=== PATIENT | female | born 1970 | race Caucasian/White ===

== ENCOUNTER 2023-02-21 12:27 | Outpatient (AMB) | payer SELFPAY ==
--- NOTE | 2023-02-21 13:27 | MHC.OFFWIV ---
Intake Vital Signs 02/21/23 13:38 Height 5 ft 2 in Weight 150 lb BMI 27.4 BP 120/70 Blood Pressure Location Rt brachial Position Sitting Pulse 86 Pulse Source Pulse Oximeter Temp 97.6 F Temp Source Temporal Artery Scan Pulse Oximetry (%) 98 Oxygen Delivery Method Room Air Intake Visit Reasons: EST/cough/congestion/[phone] Intake Note: Pt is here c/o chest congestion, cough and severe diarrhea. Patient Tobacco Use Status: Never used Tobacco Allergies Sulfa (Sulfonamide Antibiotics) Adverse Reaction (Intermediate, Verified 02/21/23 14:15) Hives Medication List - Last Reconciled 02/21/23 by Manuelito Jeff MD pravastatin 10 mg PO DAILY Do you need a note to return to daycare/school/sports/work: No HPI EST/cough/congestion/[phone] HPI Details Patient presents for a sick visit. Reporting symptoms of sinus congestion, sore throat and difficulty swallowing. Low-grade fever. No family member is sick. No recent travel. Patient reports symptoms of malaise and fatigue. [facility] Social History Patient Tobacco Use Status: Never used Tobacco Physical Exam Vital Signs: Last Vital Signs Temp 97.6 F 02/21/23 13:38 Pulse 86 02/21/23 13:38 BP 120/70 02/21/23 13:38 Pulse Ox 98 02/21/23 13:38 Oxygen Delivery Method Room Air 02/21/23 13:38 BMI result Body Mass Index 27.4 Const General: cooperative and healthy appearing Nutritional Appearance: well nourished Orientation/consciousness: patient oriented x3 Limitations: no limitations HEENT Head: Yes normal to inspection Eyes General: appearance normal, both eyes and all related structures Neck Neck: Yes normal visual inspection Chest Chest palpation & inspection: normal palpation of entire chest wall Resp Effort & Inspection: normal respiratory effort Neuro General: patient oriented x3 Assessment & Plan Assessment & Plan (1) Upper respiratory tract infection: Code(s): J06.9 - Acute upper respiratory infection, unspecified Plan: Antibiotics ordered. Increase fluid intake. Tylenol for aches and pains. If symptoms worsen, follow-up here for a recheck. Coding Level of Care Code Est Pt Level 3 (06675) Diagnoses Upper respiratory tract infection J06.9
[2023-02-21 13:38] VITALS: BP 120/70; PULSE 86; TEMP 36.4; O2SAT 98; BMI 27.4
== END 2023-02-21 14:57 | disposition home or self-care (01) ==
PROVIDERS: PCP Internal Medicine; Visit Provider Internal Medicine
DX: J06.9 Acute upper respiratory infection, unspecified (principal)
CPT/HCPCS: 99213

== ENCOUNTER 2023-03-27 10:08 | Outpatient (AMB) | payer OTHER, SELFPAY ==
[2023-03-27 10:59] VITALS: BP 132/88; PULSE 87; O2SAT 98; BMI 29.3
--- NOTE | 2023-03-27 10:59 | A.OFFPC_ITS ---
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: Not Required per policy Accompanied by: Self / Same As Patient Allergies atorvastatin Adverse Reaction (Intermediate, Unverified 03/27/23 11:20) hives Sulfa (Sulfonamide Antibiotics) Adverse Reaction (Intermediate, Verified 03/27/23 10:59) Hives Medication List - Last Reconciled 03/27/23 by Vanessa Dominguez MD albuterol sulfate 90 mcg/actuation (Ventolin HFA) 1 inh inhalation QID PRN hydroxyzine HCl 10 mg PO BEDTIME PRN pravastatin 10 mg PO DAILY Tobacco use date assessed: 03/27/23 Dental Screening Dental Screen Date: 03/27/23 Did you have a dental visit in the last 12 months?: Yes Did you have a dental problem in the last 6 months where you did not have access to dental care?: No Was dental information given to patient?: Patient has dentist 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 Patient was recently in the hospital diagnosed with upper respiratory tract infection treated with Zithromax and prednisone. [facility] Surgical History (Updated 03/27/23 @ 11:27 by Vanessa Dominguez MD) History of appendectomy H/O knee surgery Hx of tubal ligation History of tonsillectomy and adenoidectomy Family History (Updated 03/27/23 @ 11:29 by Vanessa Dominguez MD) Father Heart attack History of stroke Mother Alzheimer's disease Paternal Grandmother Heart attack History of stroke Paternal Uncle History of stroke Paternal Aunt History of stroke Maternal Aunt Breast cancer Lung cancer Maternal Grandmother Lung cancer Maternal Grandfather Lung cancer Maternal Uncle Lung cancer Eye cancer Parkinson disease Social History (Updated 03/27/23 @ 11:31 by Vanessa Dominguez MD) Housing: House Alcohol intake: current Comment: holidays 2 drinks Patient Tobacco Use Status: Current everyday Tobacco user Cigarette Packs Per Day: 1 Years Smoked: 2017 started Current occupational status: student Cognitive needs: No Hearing needs: No Vision needs: No Questionnaire PHQ-9 Over the last 2 weeks, how often have you been bothered by any of the following problems? 1. Little interest or pleasure in doing things: not at all 2. Feeling down, depressed, or hopeless: not at all 3. Trouble falling or staying asleep, or sleeping too much: not at all 4. Feeling tired or having little energy: not at all 5. Poor appetite or overeating: not at all 6. Feeling bad about yourself - or that you are a failure or have let yourself or your family down: not at all 7. Trouble concentrating on things, such as reading the newspaper or watching television: not at all 8. Moving or speaking so slowly that other people could have noticed. Or the opposite - being so fidgety or restless that you have been moving around a lot more than usual: not at all 9. Thoughts that you would be better off or of hurting yourself in some way: not at all Total score: 0 Source: Developed by Drs. Kenneth Asher, Dottie Felton, Alvarez Trujillo and colleagues, with an educational henry from [employer]. Thrive Questionnaire Date Thrive assessed: 03/27/23 I am a: Patient What is your living situation today?: I have a steady place to live Within the past 12 months, did the food you bought not last and you didn't have the money to get more?: Never true Within the past 12 months, did you worry whether your food would run out before you got money to buy more?: Never true Do you have trouble paying for medicines?: No Do you have trouble getting transportation to medical appointments?: No Do you have trouble paying your heating and electricity bill?: No Do you have trouble taking care of your child, family member or friend?: No Do you have trouble with day-to-day activities such as bathing, preparing meals, shopping, managing finances, etc.?: No Are you currently unemployed and looking for a job?: No Are you interested in more education?: No Please select the resources that you would like help with: None AUDIT C Alcohol Use Questionnaire (AUDIT-C) 1. How often do you have a drink containing alcohol?: Never Total Score: 0 YULIANA-7 AMB Questionnaire YULIANA-7 Date YULIANA - 7 assessed: 03/27/23 Feeling nervous, anxious, or on edge: 0 = Not at all Not being able to stop or control worryin = Not at all Worrying too much about different things: 0 = Not at all Trouble relaxin = Not at all Being so restless that it is hard to sit still: 0 = Not at all Becoming easily annoyed or irritable: 0 = Not at all Feeling afraid as if something awful might happen: 0 = Not at all Total YULIANA-7 score (0-4 normal; 5-9 mild; 10-14 moderate; 15-21 severe): 0 Source: Developed by Drs. Kenneth Asher, Dottie Felton, Alvarez Trujillo and colleagues, with an educational henry from [employer]. Physical exam (Primary Care) Vital Signs: Last Vital Signs Pulse 87 03/27/23 10:59 BP 132/88 03/27/23 10:59 Pulse Ox 98 03/27/23 10:59 Oxygen Delivery Method Room Air 03/27/23 10:59 BMI result Body Mass Index 29.3 Tobacco/Smoking Status: Tobacco use Status Tobacco use date assessed 03/27/23 03/27/23 11:01 Patient Tobacco Use Status Current everyday Tobacco 03/27/23 11:31 PHQ-9: PHQ-9 Score PHQ-9: Total score 0 03/27/23 11:44 Thrive Assessment: Date of Thrive Assessment Date Thrive assessed 03/27/23 03/27/23 11:01 Const General: alert; No acute distress Eyes Conjunctivae: conjunctivae normal Resp Auscultation: clear to auscultation bilaterally Cardio Rate: regular rate Rhythm: regular rhythm GI Inspection: Yes normal to inspection Extrem General: Yes normal to inspection and No edema Office Procedures Flu Questionnaire Does the patient have a severe egg allergy?: No Does the patient have severe life threatening allergies?: No Does the patient have a fever or illness today?: No Has the patient ever had Guillain-Wellington Syndrome?: No Has the patient ever had any past reaction to a flu shot?: No Immunizations flu vacc [id number] 6mos up(PF) 60 mcg(15 mcgx4)/0.5 mL IM syringe Performing Provider: Vanessa Dominguez MD [facility] [place] [facility] Administered by: CHRIS Grubbs on 03/27/23 11:44 Dose Route Admin Location Dispensed Lot Number Expiration Date NDC Glove Machine Operator 0.5 mL IM Left Deltoid 0.5 mL [id number] 10/14/23 [id number] [employer] VIS Given Date VIS Provided VIS Publication Date 03/27/23 Single Vaccine 20 Eligibility Eligibility Date Funding Source Not [facility] Eligible 03/27/23 Private Assessment and Plan Assessment & Plan (1) Overweight (BMI 25.0-29.9): Code(s): E66.3 - Overweight Plan: Diet and exercise (2) Hypercholesterolemia: Code(s): E78.00 - Pure hypercholesterolemia, unspecified Plan: Avoid fried foods, chicken skin, eggs, butter margarine, pastries and meat. Be it pork or beef they have a lot of cholesterol LDL goal of less than 130 and triglyceride of less than 150 (3) Allergic rhinitis: Code(s): J30.9 - Allergic rhinitis, unspecified (4) Tobacco abuse: Code(s): Z72.0 - Tobacco use (5) Colon cancer screening: Code(s): Z12.11 - Encounter for screening for malignant neoplasm of colon (6) Breast cancer screening by mammogram: Code(s): Z12.31 - Encounter for screening mammogram for malignant neoplasm of breast Orders: Orders Thyroid Stimulating Hormone Today E78.00 - Pure hypercholesterolemia, unspecified MM tomosynthesis screening BI Today Z12.31 - Encounter for screening mammogram for malignant neoplasm of breast Influenza [id number] Immunization Today Z23 - Encounter for immunization PFT pulmonary function test Today Z72.0 - Tobacco use Complete Blood Count Auto Diff Today E78.00 - Pure hypercholesterolemia, unspecified Comprehensive Met. Panel Today E78.00 - Pure hypercholesterolemia, unspecified Free T4 (Free Thyroxine) Today E78.00 - Pure hypercholesterolemia, unspecified Lipid Panel Today E78.00 - Pure hypercholesterolemia, unspecified Vitamin B12 and Folate Today E78.00 - Pure hypercholesterolemia, unspecified Vitamin D 25-OH Total Today E78.00 - Pure hypercholesterolemia, unspecified Referrals Cologuard Test Z12.11 - Encounter for screening for malignant neoplasm of colon Thoracic Surgery Referral Z72.0 - Tobacco use Coding Level of Care Code New Pt Level 4 (77986) Diagnoses Overweight (BMI 25.0-29.9) E66.3 Hypercholesterolemia E78.00 Allergic rhinitis J30.9 Tobacco abuse Z72.0 Colon cancer screening Z12.11 Breast cancer screening by mammogram Z12.31
== END 2023-03-27 11:54 | disposition home or self-care (01) ==
PROVIDERS: PCP Internal Medicine; Visit Provider Internal Medicine
DX: E66.3 Overweight (principal); E78.00 Pure hypercholesterolemia, unspecified; J30.9 Allergic rhinitis, unspecified; Z72.0 Tobacco use; Z12.11 Encounter for screening for malignant neoplasm of colon; Z12.31 Encounter for screening mammogram for malignant neoplasm of breast; Z23 Encounter for immunization
CPT/HCPCS: 90471; 90686; 99204

== ENCOUNTER 2023-03-30 08:38 | Outpatient (REF) | payer OTHER, SELFPAY ==
--- NOTE | ~2023-03-30 | MM_ITS ---
EXAMINATION: MM SCREENING DIGITAL BREAST TOMOSYNTHESIS, BILATERAL CLINICAL INFORMATION: Screening. Asymptomatic. COMPARISON: Mammography: This study is compared with prior exams dating back to 2017. TECHNIQUE: Digital breast tomosynthesis is performed in both the craniocaudal and mediolateral oblique views along with computer-aided detection (CAD). Synthesized 2D images are generated from the tomosynthesis. FINDINGS: There are scattered areas of fibroglandular density (ACR BI-RADS breast composition Category b). In the superior aspect of the deep third of the right breast, there is an asymmetry for which additional mammographic and targeted sonographic imaging is advised. In the left breast, there are no significant masses, abnormal calcifications, or other abnormalities. MM/MM tomosynthesis screening BI IMPRESSION: Asymmetry of the right breast warrants additional mammographic and targeted sonographic evaluation. No mammographic signs of malignancy left breast. ASSESSMENT: BI-RADS BI-RADS 0 - Incomplete: Needs additional Imaging. RECOMMENDATION: 1. Additional views of the right breast. 2. Targeted ultrasound if warranted after review of the additional views. 3. Radiology department staff will contact the patient for additional imaging. Additional Imaging required This examination should not preclude the clinical evaluation of a suspicious palpable abnormality. This patient's information was entered into a reminder system with a target due date for their next mammogram.
== END 2023-03-30 08:39 | disposition home or self-care (01) ==
LOC: HO.MAMMO 08:38
PROVIDERS: PCP Internal Medicine; Visit Provider Internal Medicine
DX: Z12.31 Encounter for screening mammogram for malignant neoplasm of breast (principal)
CPT/HCPCS: 77063; 77067

== ENCOUNTER → 2023-03-30 08:45 | Outpatient (BNV) | payer OTHER, SELFPAY | PROVIDERS: PCP Internal Medicine; Visit Provider Radiology Diagnostic Radiology | DX: Z12.31 Encounter for screening mammogram for malignant neoplasm of breast (principal) | CPT/HCPCS: 77063; 77067 ==

== ENCOUNTER 2023-04-23 07:56 | Outpatient (REF) | payer OTHER, SELFPAY | END 2023-04-23 07:57 | disposition home or self-care (01) | LOC: HO.MAMMO 07:56 | PROVIDERS: PCP Internal Medicine; Visit Provider Internal Medicine | DX: N64.89 Other specified disorders of breast (principal) | CPT/HCPCS: 77061; 77065 ==

== ENCOUNTER → 2023-04-23 08:00 | Outpatient (BNV) | payer OTHER, SELFPAY | PROVIDERS: PCP Internal Medicine; Visit Provider Radiology Diagnostic Radiology | DX: R92.8 Other abnormal and inconclusive findings on diagnostic imaging of breast (principal) | CPT/HCPCS: 77061; 77065 ==

== ENCOUNTER 2024-03-01 11:31 | Outpatient (AMB) | payer OTHER, SELFPAY ==
--- NOTE | 2024-03-01 11:58 | AM.OFFWIN_ITS ---
Intake Vital Signs 03/01/24 11:59 Height 5 ft 2 in Weight 160 lb BMI 29.3 BP 130/80 Blood Pressure Location Lt brachial Position Sitting Pulse 92 Pulse Source Pulse Oximeter Temp 98.5 F Temp Source Oral Pulse Oximetry (%) 98 Intake Visit Reasons: EP cough Intake Note: pt is here for cough for a few days Patient Tobacco Use Status: Current everyday Tobacco user Allergies atorvastatin Adverse Reaction (Intermediate, Verified 03/01/24 12:00) hives Sulfa (Sulfonamide Antibiotics) Adverse Reaction (Intermediate, Verified 03/01/24 12:00) Hives Do you need a note to return to daycare/school/sports/work: No HPI HPI Comments History of Present Illness Details 53 y/o female patient who presents to [facility] walk in clinic with c/o cough for few days now. [facility] Surgical History (Updated 03/27/23 @ 11:27 by Vanessa Dominguez MD) History of appendectomy H/O knee surgery Hx of tubal ligation History of tonsillectomy and adenoidectomy Family History (Updated 03/27/23 @ 11:29 by Vanessa Dominguez MD) Father Heart attack History of stroke Mother Alzheimer's disease Paternal Grandmother Heart attack History of stroke Paternal Uncle History of stroke Paternal Aunt History of stroke Maternal Aunt Breast cancer Lung cancer Maternal Grandmother Lung cancer Maternal Grandfather Lung cancer Maternal Uncle Lung cancer Eye cancer Parkinson disease Social History (Updated 03/27/23 @ 11:31 by Vanessa Dominguez MD) Housing: House Alcohol intake: current Comment: holidays 2 drinks Patient Tobacco Use Status: Current everyday Tobacco user Cigarette Packs Per Day: 1 Years Smoked: 2017 started Current occupational status: student Cognitive needs: No Hearing needs: No Vision needs: No Review of Systems Const All systems reviewed & are unremarkable except as noted in HPI and below Physical Exam Vital Signs: Last Vital Signs Temp 98.5 F 03/01/24 11:59 Pulse 92 03/01/24 11:59 BP 130/80 03/01/24 11:59 Pulse Ox 98 03/01/24 11:59 BMI result Body Mass Index 29.3 Const General: cooperative and no acute distress Orientation/consciousness: patient oriented x3 HEENT Head: Yes normocephalic Ears: external ears normal and TM's normal bilaterally General nose exam: Normal external nose present Face and sinus: Yes sinuses nontender Mouth: moist mucous membranes Resp Effort & Inspection: normal respiratory effort, able to speak in complete sentences and Actively coughing Auscultation: no crackles, no rales, no rhonchi, wheezes inspiratory wheezes and diminished lung sounds bilateral in the lower lung [place] Cardio Heart sounds: S1 normal heart sound present and S2 normal heart sound present Neuro General: patient oriented x3 Assessment & Plan Assessment & Plan (1) Cough: Code(s): R05.9 - Cough, unspecified Qualifiers: Cough type: acute Qualified Code(s): R05.1 - Acute cough Plan: Ordered Chest Xray Ordered Abx Acetaminophen for pain relief Rest and hydrate well with warm fluids. Orders: Orders XR chest 2V Today R05.1 - Acute cough SARS-CoV2/FLU/RSV Today R09.89 - Other specified symptoms and signs involving the circulatory and respiratory systems Medications: New prednisone 50 mg PO DAILY 5 tabs 0RF R05.1 - Acute cough doxycycline hyclate 100 mg PO BID 20 caps 0RF 10 days R05.1 - Acute cough benzonatate 100 mg PO TID 90 caps 0RF R05.1 - Acute cough Coding Level of Care Code Est Pt Level 4 (81877) Diagnoses Acute cough R05.1 Cough type: acute Time Spent (min) 20
[2024-03-01 11:59] VITALS: BP 130/80; PULSE 92; TEMP 36.9; O2SAT 98; BMI 29.3
== END 2024-03-01 12:22 | disposition home or self-care (01) ==
PROVIDERS: PCP Internal Medicine; Visit Provider Nurse Practitioner Family
DX: R05.1 Acute cough (principal)

== ENCOUNTER 2024-03-01 11:31 | Outpatient (REF) | payer OTHER, SELFPAY ==
--- NOTE | ~2024-03-01 | XR_ITS ---
EXAMINATION: XR CHEST CLINICAL INFORMATION: R05.1 - Acute cough COMPARISON: None available. TECHNIQUE: 2 views of the chest were obtained. FINDINGS: No consolidation, pleural effusion or pneumothorax. No hyperinflation. Cardiomediastinal silhouette is normal. Osseous structures are intact. S-shaped curvature of the thoracic spine could be related to positioning versus scoliosis. XR/XR chest 2V IMPRESSION: No acute airspace disease. Electronically signed by: Aman Salter MD 03/03/2024 07:52 AM [facility]
== END 2024-03-01 11:32 | disposition home or self-care (01) ==
LOC: HO.HMGCX 11:31
PROVIDERS: PCP Internal Medicine; Visit Provider Nurse Practitioner Family
DX: R05.1 Acute cough (principal)
CPT/HCPCS: 71046

== ENCOUNTER → 2024-03-01 12:14 | Outpatient (BNV) | payer OTHER, SELFPAY | PROVIDERS: PCP Internal Medicine; Visit Provider Radiology Diagnostic Radiology | DX: R05.1 Acute cough (principal) | CPT/HCPCS: 71046 ==

== ENCOUNTER 2024-03-01 12:21 | Outpatient (REF) | payer OTHER, SELFPAY ==
[2024-03-01 15:30] LABS: Influenza A PCR NEGATIVE (Negative); Influenza B PCR NEGATIVE (Negative); Resp Syncy Virus RNA Qual PCR NEGATIVE (Negative); SARS COV2 PCR INHOUSE NEGATIVE (Negative)
== END 2024-03-01 12:22 | disposition home or self-care (01) ==
LOC: HO.LAB 12:21
PROVIDERS: Visit Provider Nurse Practitioner Family
DX: R05.1 Acute cough (principal); R09.89 Other specified symptoms and signs involving the circulatory and respiratory systems
CPT/HCPCS: 0241U

== ENCOUNTER 2024-05-22 08:12 | Outpatient (REF) | payer OTHER, SELFPAY ==
[2024-05-22 11:16] LABS: Influenza A PCR NEGATIVE (Negative); Influenza B PCR NEGATIVE (Negative); Resp Syncy Virus RNA Qual PCR NEGATIVE (Negative); SARS COV2 PCR INHOUSE NEGATIVE (Negative)
== END 2024-05-22 08:13 | disposition home or self-care (01) ==
LOC: HO.LAB 08:12
PROVIDERS: PCP Internal Medicine; Visit Provider Nurse Practitioner Family
DX: J06.9 Acute upper respiratory infection, unspecified (principal)
CPT/HCPCS: 0241U

== ENCOUNTER 2024-09-03 14:26 | Outpatient (AMB) | payer OTHER, SELFPAY ==
--- NOTE | 2024-09-03 14:41 | AM.OFFWIN_ITS ---
Intake Vital Signs 09/03/24 14:46 Height 5 ft 2 in Weight 167 lb BMI 30.5 BP 118/80 Blood Pressure Location Rt brachial Position Sitting Pulse 62 Pulse Source Pulse Oximeter Pulse Oximetry (%) 98 Oxygen Delivery Method Room Air Intake Visit Reasons: EP NO BM for six days, stomach discomfort Patient Tobacco Use Status: Current everyday Tobacco user Allergies atorvastatin Adverse Reaction (Intermediate, Verified 09/03/24 14:46) hives Sulfa (Sulfonamide Antibiotics) Adverse Reaction (Intermediate, Verified 09/03/24 14:46) Hives HPI HPI Comments History of Present Illness Details History of Present Illness - The patient is a 54-year-old female pr esenting with persistent gastrointestinal symptoms including dysphagia, acid reflux, abdominal pain, and constipation. - The patient experienced gastrointestin al discomfort described as spasms commencing in May, subsequently involving burning and pain with swallowing. She was prescribed Reglan which helped her symptoms. - The constipation is severe, marked by an absence of bowel movements for six days. - The patient attempted to manage her co ndition with Maalox, Dulcolax, and Pedialyte without significant improvement, highlighting the severity and persistence of symptoms. - GERD-like symptoms include significant burning and esophageal spasms, compounded by abdominal soreness and marked lack of appetite. - she denies any nausea or vomiting or f laquita. - she has never had a colonoscopy or see n a GI doctor - last visit with her PCP is unknown Physical Exam General: Cooperative, healthy appearing, comfortable, no acute distress and well developed Orientation: Patient oriented x3 Limitations: No limitations Head: Normal to inspection Ears: Hearing grossly normal bilaterally Nose: Normal External nose present Face and sinus: Normal facial exam Eyes: Appearance normal, both eyes and all related structures Neck: Normal visual inspection and Yes full ROM Respiratory: Normal respiratory effort and able to speak in complete sentences. GI: soft, slight ttp LLQ, negative murphys, negative McBurney's Skin: No rashes or lesions noted Neuro: Patient oriented x3 Extremities: Normal to inspection [facility] Medical History (Updated 09/03/24 @ 15:19 by Cora Evangelista PA-C) Diarrhea Acute respiratory disease Surgical History (Updated 03/27/23 @ 11:27 by Vanessa Dominguez MD) History of appendectomy H/O knee surgery Hx of tubal ligation History of tonsillectomy and adenoidectomy Family History (Updated 03/27/23 @ 11:29 by Vanessa Dominguez MD) Father Heart attack History of stroke Mother Alzheimer's disease Paternal Grandmother Heart attack History of stroke Paternal Uncle History of stroke Paternal Aunt History of stroke Maternal Aunt Breast cancer Lung cancer Maternal Grandmother Lung cancer Maternal Grandfather Lung cancer Maternal Uncle Lung cancer Eye cancer Parkinson disease Social History (Updated 03/27/23 @ 11:31 by Vanessa Dominguez MD) Housing: House Alcohol intake: current Comment: holidays 2 drinks Patient Tobacco Use Status: Current everyday Tobacco user Cigarette Packs Per Day: 1 Years Smoked: 2017 started Current occupational status: student Cognitive needs: No Hearing needs: No Vision needs: No Review of Systems Const All systems reviewed & are unremarkable except as noted in HPI and below Physical Exam Vital Signs: Last Vital Signs Pulse 62 09/03/24 14:46 BP 118/80 09/03/24 14:46 Pulse Ox 98 09/03/24 14:46 Oxygen Delivery Method Room Air 09/03/24 14:46 BMI result Body Mass Index 30.5 Assessment & Plan Assessment & Plan (1) Constipation: Code(s): K59.00 - Constipation, unspecified Qualifiers: Constipation type: unspecified constipation type Qualified Code(s): K59.00 - Constipation, unspecified Plan: VSS, pt well appearing and PE notable for slight TTP LLQ. The patient's GI symptoms, including dysphagia, abdominal pain indicative of GERD, and constipation, were addressed. Given the constipation's severity, I recommended a Fleet enema and MiraLAX to promote bowel movements along with Metamucil daily. Increased fluid intake is encouraged. I advised on the urgency of seeking further evaluation if symptoms persist, worsen or she develops a fever, bloody or black stools or she is unable to have a BM in the coming day or two despite doing all of the above. [facility], recommended she follow up with her primary physician, Dr. Dominguez, for further workup and referral to a metallic yarn slitting machine operator for a colonoscopy. I provided educational materials/ Up To Date Beyond the Basics on Constipation. The patient must attend the emergency department if fever, increased pain, or no bowel movement occurs in the coming days to prevent complications like obstruction. Patient understands and agrees with the plan. Patient was informed and verbally consented to the use of an ambient scribe for clinic note documentation during this visit. Medications: Refilled metoclopramide HCl (Reglan) 5 mg PO Q4-6H 20 tabs 0RF J06.9 - Acute upper respiratory infection, unspecified, R19.7 - Diarrhea, unspecified Coding Level of Care Code Est Pt Level 3 (41789) Diagnoses Constipation, unspecified constipation type K59.00 Constipation type: unspecified constipation type
[2024-09-03 14:46] VITALS: BP 118/80; PULSE 62; O2SAT 98; BMI 30.5
== END 2024-09-03 15:47 | disposition home or self-care (01) ==
PROVIDERS: PCP Internal Medicine; Visit Provider Physician Assistant
DX: K59.00 Constipation, unspecified (principal)

== ENCOUNTER → 2024-09-03 14:26 | Outpatient (BNVA) | payer OTHER, SELFPAY | PROVIDERS: PCP Internal Medicine; Visit Provider Physician Assistant | DX: Z13.89 Encounter for screening for other disorder (principal) ==

== ENCOUNTER 2025-01-23 13:57 | Outpatient (AMB) | payer OTHER, SELFPAY ==
[2025-01-23 14:14] VITALS: BP 118/82; PULSE 76; TEMP 37; O2SAT 95; BMI 27.4
--- NOTE | 2025-01-23 14:14 | MHC.OFFWIV ---
Intake Vital Signs 01/23/25 14:14 Height 5 ft 2 in Weight 150 lb BMI 27.4 BP 118/82 Blood Pressure Location Lt brachial Position Sitting Pulse 76 Pulse Source Pulse Oximeter Temp 98.6 F Temp Source Oral Pulse Oximetry (%) 95 Oxygen Delivery Method Room Air Intake Visit Reasons: EP upper abdomen pain Intake Note: pt presents with epigastric pain with esophageal discomfort, constipation, metallic taste in mouth, burping gives minimal relief, noticing lack of stomach noises/digestion. pt reports current infection on right upper mouth- on amoxicillin as of yesterday. Patient Tobacco Use Status: Current everyday Tobacco user Allergies atorvastatin Adverse Reaction (Intermediate, Verified 01/23/25 14:18) hives Sulfa (Sulfonamide Antibiotics) Adverse Reaction (Intermediate, Verified 01/23/25 14:18) Hives Do you need a note to return to daycare/school/sports/work: Yes HPI HPI Comments History of Present Illness Details History of Present Illness - The patient is a 54-year-old female with no significant pmh presenting with constipation and abdominal pain. - She reports a history of constipation, with the last bowel movement occurring a week ago. - Not passing much gas, thinks the last time was a day or 2 ago. - She describes the abdominal pain as worsening compared to a previous similar episode. - The patient has attempted multiple interventions including MiraLax, suppositories, senna and dietary fiber without relief. Has been drinking water but has reduced appetite, feels full all the time and eating makes the pain worse. - Denies fevers, nausea or vomiting. Feels like she could vomit but hasn't. - She reports a metallic taste in her mouth. - The patient has a history of an appendectomy and no prior colonoscopy, but a normal Cologuard test. - She currently has a dental infection for which she was prescribed amoxicillin yesterday. Physical Exam General: Cooperative, healthy appearing, comfortable, no acute distress and well developed Orientation: Patient oriented x3 Limitations: No limitations Head: Normal to inspection Ears: Hearing grossly normal bilaterally Nose: Normal External nose present Face and sinus: Normal facial exam Eyes: Appearance normal, both eyes and all related structures Neck: Normal visual inspection and Yes full ROM Respiratory: Normal respiratory effort and able to speak in complete sentences. Skin: No rashes or lesions noted Neuro: Patient oriented x3, gait normal Extremities: Normal to inspection, moving all extremities normally Review of Systems - Gastrointestinal: Reports constipation, abdominal pain, and metallic taste in mouth. Denies nausea, vomiting, or fever. - General: Reports lack of appetite and difficulty eating due to discomfort. All systems reviewed and are unremarkable except as noted in HPI [facility] Medical History Diarrhea Acute respiratory disease Surgical History History of appendectomy H/O knee surgery Hx of tubal ligation History of tonsillectomy and adenoidectomy Family History Father Heart attack History of stroke Mother Alzheimer's disease Paternal Grandmother Heart attack History of stroke Paternal Uncle History of stroke Paternal Aunt History of stroke Maternal Aunt Breast cancer Lung cancer Maternal Grandmother Lung cancer Maternal Grandfather Lung cancer Maternal Uncle Lung cancer Eye cancer Parkinson disease Social History Housing: House Alcohol intake: current Comment: holidays 2 drinks Patient Tobacco Use Status: Current everyday Tobacco user Cigarette Packs Per Day: 1 Years Smoked: 2017 started Current occupational status: student Cognitive needs: No Hearing needs: No Vision needs: No Physical Exam Vital Signs: Last Vital Signs Temp 98.6 F 01/23/25 14:14 Pulse 76 01/23/25 14:14 BP 118/82 01/23/25 14:14 Pulse Ox 95 01/23/25 14:14 Oxygen Delivery Method Room Air 01/23/25 14:14 BMI result Body Mass Index 27.4 Assessment & Plan Assessment & Plan (1) Constipation: Code(s): K59.00 - Constipation, unspecified Qualifiers: Constipation type: unspecified constipation type Qualified Code(s): K59.00 - Constipation, unspecified Plan: Assessment and Plan - VSS, pt well appearing however as she has not passed gas in a couple of days, and she has 1 prior abdominal surgery with severe constipation, the patient is advised to visit the emergency room to rule out bowel obstruction, with a recommendation for a CT scan to evaluate the condition. - Called [facility] with expect, spoke to KURTIS Fonseca in triage. Coding Level of Care Code Est Pt Level 5 (94192) Diagnoses Constipation, unspecified constipation type K59.00 Constipation type: unspecified constipation type
== END 2025-01-23 14:57 | disposition home or self-care (01) ==
PROVIDERS: PCP Internal Medicine; Visit Provider Physician Assistant
DX: K59.00 Constipation, unspecified (principal)

== ENCOUNTER 2025-01-23 15:03 | Emergency (ER) | payer OTHER, SELFPAY ==
--- NOTE | ~2025-01-23 | CT_ITS ---
CLINICAL HISTORY: Abdominal pain CT abdomen and pelvis with contrast Comparison: None provided Findings: Right lower lobe lateral peripheral subsolid nodule, 0.4 cm, axial image number 5 of 17 series 7. Right lower lobe posterior lateral peripheral noncalcified pulmonary nodule, 0.4 cm, image number 12 of 17 series 7. The liver and spleen are homogeneous in attenuation. The left and right kidney demonstrate symmetric corticomedullary enhancement. No cholelithiasis identified. The pancreas is homogeneous in attenuation. No bowel obstruction, pneumoperitoneum, or pneumatosis. The appendix is not grossly identified. The uterus is mildly atrophic. Mild osteopenia. IMPRESSION: 1. Right lower lobe peripheral subsolid nodule, 0.4 cm. Right lower lobe peripheral noncalcified pulmonary nodule, 0.4 cm. No routine follow-up required. Fleischner Society pulmonary nodule recommendations. 2. No acute intraabdominal or pelvic findings. This document has been electronically signed by: Spencer Horan MD on 01/23/2025 20:27:28
--- NOTE | ~2025-01-23 | XR_ITS ---
EXAMINATION: XR ABDOMEN KUB CLINICAL INDICATION: question bowel obstruction COMPARISON: None available. TECHNIQUE: 2 AP views of the abdomen. FINDINGS: Nondilated bowel loops with no evidence of ileus or mechanical obstruction. Small-moderate stool in the large colon. No abnormal soft tissue calcifications.. Phleboliths in the pelvis. No gross pneumoperitoneum. Lung bases are clear. No acute osseous findings. XR/XR KUB IMPRESSION: Nonobstructive bowel gas pattern. Electronically signed by: Kenny Mclaughlin MD 01/23/2025 04:12 PM EDT
[2025-01-23 15:51] VITALS: BP 143/85; PULSE 87; RESP 20; TEMP 37; O2SAT 96; BMI 23.9
[2025-01-23 17:21] LABS: MANUAL DIFF FLAG NO
[2025-01-23 17:23] LABS: Hematocrit 45.4 % (37.0-47.0); Hemoglobin 15.6 g/dl (12.0-16.0); Imm Gran Abs Auto 0.03 X10*3/uL (0.00-0.03); Imm Gran Pct Auto 0.3 % (0.0-0.4); Lymphocytes Absolute Auto 2.0 X10*3/uL (1.2-4.9); Mean Corpuscular HGB Conc 34.4 g/dl (31.0-35.0); Mean Corpuscular Hemoglobin 29.6 pg (27.0-33.0); Mean Corpuscular Volume 86.1 fL (80.0-98.0); NRBC Abs Auto 0.000 X10*3/uL (0.0-0.012); NRBC Pct Auto 0.0 /100WBC (0.0-0.2); Platelet Count 277 X10*3/uL (160-400); Red Blood Count 5.27 X10*6/uL (4.20-5.50); White Blood Count 11.5 X10*3/uL (4.8-10.8)
[2025-01-23 17:56] LABS: Alanine Aminotransferase 15 U/L (0-31); Albumin Level 4.8 g/dL (3.5-5.0); Alkaline Phosphatase 73 U/L (39-117); Anion Gap 11 (12-20); Aspartate Amino Transferase 28 U/L (5-31); Blood Urea Nitrogen 14 mg/dL (9-16); Calcium 10.4 mg/dL (8.4-10.2); Carbon Dioxide 28 mmol/L (22-29); Chloride 106 mmol/L (96-108); Creatinine Clr Calc Pharmacy 83.6; Estimated Glomerular Filt Rate > 60; Lipase 33 U/L (8-78); Magnesium 2.3 mg/dL (1.6-2.6); Potassium 3.9 mmol/L (3.3-5.1); Sodium 141 mmol/L (135-145); Total Protein 7.7 g/dL (6.5-8.0)
--- NOTE | 2025-01-23 19:16 | ED_ITS ---
HPI - Abdominal Pain General Chief Complaint: Abdominal Pain Stated Complaint: intestinal blockage Time Seen by Provider: 01/23/25 19:02 Source: patient Mode of arrival: ambulatory Limitations: no limitations History of Present Illness ED Provider: DR. Alvarez HPI narrative: 54-year-old female came in from urgent Care walk-in clinic for further evaluation of small-bowel obstruction, patient came in for 4 days of upper abdominal discomfort, decreased appetite, feeling nauseous with no vomiting, for the last 4 days patient feels constipated able to have bowel movement when she administer suppository only, passing small amount of flatus, abdominal surgery is significant for tubal ligation and appendectomy. No vomiting, no diarrhea, no fever, no chills, no dysuria, no frequency urination, no vaginal bleed, no vaginal discharge. Related Data Home Medications ?Medication ?Instructions ?Recorded ?Confirmed amoxicillin 500 mg tablet 500 mg PO Q8H 01/23/25 famotidine 20 mg tablet 20 mg PO DAILY PRN 01/23/25 (Zantac-360 (famotidine)) Previous Rx's ?Medication ?Instructions ?Recorded albuterol sulfate 90 mcg/actuation 1 inh inhalation QI D PRN shortness 02/21/23 aerosol inhaler (Ventolin HFA) of breath or wheezing # 8.5 grams pravastatin 10 mg tablet 10 mg PO DAILY #90 tabs 06/16 05/10 hydroxyzine HCl 10 mg tablet 10 mg PO BEDTIME PRN anxi ety #90 08/17/24 tabs omeprazole 40 mg capsule,delayed 40 mg PO DAILY #14 ca ps 01/23/25 release Allergies Allergy/AdvReac Type Severity Reaction Status Date / Time atorvastatin AdvReac Intermediate hives Verified 01/23/25 15:51 Sulfa (Sulfonamide AdvReac Intermediate Hives Verified 01/23/25 15:51 Antibiotics) Review of Systems Review of Systems All other systems are reviewed and are negative Constitutional: Reports as per HPI and Reports no additional constitutional complaints Eyes: Reports as per HPI and Reports no additional eye complaints Reports system reviewed and no additional complaints, except as documented Cardiovascular: Reports as per HPI and Reports no additional cardiovascular complaints Respiratory: Reports as per HPI and Reports no additional respiratory complaints Gastrointestinal: Reports as per HPI and Reports no additional gastrointestinal complaints Genitourinary: Reports no additional female genitourinary complaints Musculoskeletal: Reports no additional musculoskeletal complaints Skin/Breast: Reports system reviewed and no additional complaints, except as docu Psychiatric: Reports no additional psychiatric complaints Endocrine: Reports no additional endocrine complaints Hematologic/Lymphatic: Reports no additional hematologic/lymphatic complaints Allergic/Immunologic: Reports no additional allergic/immunologic complaints Reports system reviewed and no additional complaints, except as documented and Reports Abnormal speech present [facility] Past Medical History Medical History Diarrhea Acute respiratory disease Surgical History History of appendectomy H/O knee surgery Hx of tubal ligation History of tonsillectomy and adenoidectomy Family History Family History Father Heart attack History of stroke Mother Alzheimer's disease Paternal Grandmother Heart attack History of stroke Paternal Uncle History of stroke Paternal Aunt History of stroke Maternal Aunt Breast cancer Lung cancer Maternal Grandmother Lung cancer Maternal Grandfather Lung cancer Maternal Uncle Lung cancer Eye cancer Parkinson disease Social History Social History Housing: House Alcohol intake: current Alcohol intake frequency: does not drink Comment: holidays 2 drinks Patient Tobacco Use Status: Current everyday Tobacco user Cigarette Packs Per Day: 1 Years Smoked: 2017 started Smoked in Last 30 Days: Yes Use of substances other than those prescribed or required for medical reasons: No Advance Directives: No Advance Directives Information Provided: No Patient : No Current occupational status: student Cognitive needs: No Hearing needs: No Vision needs: No Physical Exam ED Vital Signs: Vital Signs - 24 hr 01/23/25 15:51 01/23/25 20:47 Temperature 98.6 F 98.1 F Pulse Rate 87 67 Respiratory Rate 20 16 Blood Pressure 143/85 H 129/75 Pulse Oximetry 96 94 Oxygen Delivery Method Room Air Room Air BMI result Body Mass Index 23.9 Vital signs have been reviewed and appear to be correct. Blood pressure elevated. Heart rate normal. Respiratory rate normal. Temperature normal. Oxygen saturation normal. Appearance: Alert. Oriented X3. No acute distress. Head: Normal external exam. Normocephalic. Atraumatic. No Mills signs noted. No raccoon eyes noted Eyes: PERRLA. EOMI. Conjunctiva and sclera normal. Eyelids normal. ENT: TM's Normal. Pharynx normal. Uvula midline. Moist mucous membranes. No trismus noted. No drooling noted. No muffled voice noted. Neck: Normal inspection. Neck supple. FROM. No adenopathy. Thyroid Normal. No meningeal signs. No neck mass noted. CVS: Normal heart rate and rhythm. Heart sound normal. No murmurs noted. Pulses normal throughout. Respiratory: No respiratory distress. Painless inspiration. Breath sounds normal. No wheezes/rales/rhonchi noted. Chest nontender. No accessory muscle usage noted or decreased air movement noted. Abdomen: Soft and nontender. Bowel sounds normal in all 4 quadrants. No distention noted. No organomegaly noted. No visible injury noted. Back: No CVA tenderness. Full range of motion noted. Skin: Skin warm and dry. Normal skin color. Normal skin turgor. No rashes/lesions/lacerations noted. Extremities: No lower extremity edema. Extremities exhibit normal range of motion. Extremities nontender. Neuro: Oriented X 3. Cranial nerve exam: II-XII are grossly intact No motor deficit. No sensory deficit. Reflexes normal. Course Reevaluation(s) Reevaluation #1: Complaining of subjective upper abdominal pain, unremarkable labs, CT of the abdomen and pelvis shows 0.4 cm right lung nodule that was discussed with the patient to follow-up with her PCP for follow-up. Patient felt better after was given PPI in the ED. Patient also was instructed to follow-up with her PCP in regard to her abdominal pain and if the pain is not improving or getting worse to seek immediate medical attention Time: 22:17 Medical Decision Making Differential Diagnosis Differential Diagnoses: The differential diagnosis associated with the presentation includes (Colitis, diverticulitis, gastroenteritis, pancreatitis, acute appendicitis, electrolyte derangement, severe anemia UTI, SBO, constipation.) Admission/Observation Consideration of admission/observation: Escalation of care including admission/observation considered Lab Data MDM Lab Attestation statement: I reviewed the patient's lab results. 01/23/25 17:16 01/23/25 17:16 Labs: Lab Results 01/23/25 Range/Units 17:16 WBC 11.5 H (4.8-10.8) X10*3/uL RBC 5.27 (4.20-5.50) X10*6/uL Hgb 15.6 (12.0-16.0) g/dl Hct 45.4 (37.0-47.0) % MCV 86.1 (80.0-98.0) fL MCH 29.6 (27.0-33.0) pg MCHC 34.4 (31.0-35.0) g/dl RDW 13.4 (11.0-16.0) % Plt Count 277 (160-400) X10*3/uL MPV 9.1 L (9.4-12.3) fL Immature Gran % (Auto) 0.3 (0.0-0.4) % Neut % (Auto) 74.4 H (45-73) % Lymph % (Auto) 17.5 L (20-40) % [place] % (Auto) 4.5 (2-11) % Eos % (Auto) 2.7 (0-4) % Baso % (Auto) 0.6 (0-2) % Lymph # (Auto) 2.0 (1.2-4.9) X10*3/uL [place] # (Auto) 0.5 (0.1-1.2) X10*3/uL Eos # (Auto) 0.3 (0.0-0.4) X10*3/uL Baso # (Auto) 0.1 (0.0-0.2) X10*3/uL Abs Immat Gran (auto) 0.03 (0.00-0.03) X10*3/uL Absolute Neuts (auto) 8.6 H (2.0-8.3) x10*3/uL Absolute Nucleated RBC 0.000 (0.0-0.012) X10*3/uL Nucleated RBC % (auto) 0.0 (0.0-0.2) /100WBC Sodium 141 (135-145) mmol/L Potassium 3.9 (3.3-5.1) mmol/L Chloride 106 (96-108) mmol/L Carbon Dioxide 28 (22-29) mmol/L Anion Gap 11 L (12-20) BUN 14 (9-16) mg/dL Creatinine 0.72 (0.5-1.4) mg/dL Estim Creat Clear Calc 83.6 Estimated GFR > 60 Random Glucose 85 (60-115) mg/dL Calcium 10.4 H (8.4-10.2) mg/dL Magnesium 2.3 (1.6-2.6) mg/dL Total Bilirubin 0.4 (0.0-1.0) mg/dL AST 28 (5-31) U/L ALT 15 (0-31) U/L Alkaline Phosphatase 73 (39-117) U/L Total Protein 7.7 (6.5-8.0) g/dL Albumin 4.8 (3.5-5.0) g/dL Lipase 33 (8-78) U/L Independent Interpretation I performed an independent interpretation of an: CT Scan (Abdomen pelvis:1. Right lower lobe peripheral subsolid nodule, 0.4 cm. Right lower lobe peripheral noncalcified pulmonary nodule, 0.4 cm. No routine follow-up required. Fleischner Society pulmonary nodule recommendations. 2. No acute intraabdominal or pelvic findings.) Radiology Impression Discussion of test interpretation with radiology: I have reviewed the radiologist's reading. Medications Administered Discontinued Medications Generic Name Dose Route Start Last Admin Trade Name Freq PRN Reason Stop Dose Admin Al Hydroxide/Mg Hydroxide 30 ml 01/23/25 19:17 01/23/25 19:31 Magnesium Hydrox/Alum Hydrox 30 Ml Oral.Susp PO 01/23/25 19:18 30 ml ONCE ONE Administration Famotidine 20 mg 01/23/25 19:17 01/23/25 19:31 Famotidine/Pf 20 Mg/2 Ml Vial IVPUSH 01/23/25 19:18 20 mg ONCE ONE Administration Iohexol 100 ml 01/23/25 19:47 01/23/25 19:47 Iohexol 350 Mg/Ml 100 Ml Infus..Btl IV 01/23/25 19:48 85 ml ONCE ONE Administration Magnesium Hydroxide 30 ml 01/23/25 19:16 01/23/25 19:31 Milk Of Magnesia 30 Ml Oral.Susp PO 01/23/25 19:17 30 ml ONCE ONE Administration Sucralfate 1 gm 01/23/25 19:17 01/23/25 19:31 Sucralfate Oral Suspension 1 Gm/10 Ml Oral.Susp PO 01/23/25 19:18 1 gm ONCE ONE Administration Discharge Plan Discharge Clinical Impression: Lung nodule, Abdominal pain, Gastritis Patient Disposition: Home, Self-Care Instructions: Abdominal Pain (ED) Prescriptions: New omeprazole 40 mg capsule,delayed release(DR/EC) 40 mg PO DAILY Qty: 14 0RF No Action pravastatin 10 mg tablet 10 mg PO DAILY Qty: 90 0RF hydroxyzine HCl 10 mg tablet 10 mg PO BEDTIME PRN (Reason: anxiety) Qty: 90 0RF Rx Instructions: anxiety/ allergy albuterol sulfate [Ventolin HFA] 90 mcg/actuation HFA aerosol inhaler 1 inh inhalation QID PRN (Reason: shortness of breath or wheezing) Qty: 8.5 1RF famotidine [Zantac-360 (famotidine)] 20 mg tablet 20 mg PO DAILY PRN amoxicillin 500 mg tablet 500 mg PO Q8H Referrals: Alberto,Vanessa Whitney MD [Primary Care Provider, Internal Medicine] Print Language: Hungarian
[2025-01-23] MEDS: Sucralfate Oral Suspension 1 GM/10 ML ORAL.SUSP PO (19:31)
[2025-01-23] MEDS: Magnesium Hydrox/Alum Hydrox 30 ML ORAL.SUSP PO (19:31)
[2025-01-23] MEDS: Milk of Magnesia 30 ML ORAL.SUSP PO (19:31)
--- NOTE | 2025-01-23 19:38 | PC.NURSE ---
Pt in transit to ct scan. Ambulatory with steady gait.
[2025-01-23] MEDS: iohexoL 350 MG/ML 100 ML INFUS..BTL IV (19:47)
[2025-01-23 20:47] VITALS: BP 129/75; PULSE 67; RESP 16; TEMP 36.7; O2SAT 94
[2025-01-23 22:35] VITALS: BP 129/75; PULSE 67; RESP 16; TEMP 36.7; O2SAT 94
== END 2025-01-23 22:35 | disposition home or self-care (01) ==
PROVIDERS: Emergency Provider Emergency Medicine; PCP Internal Medicine
DX: K29.70 Gastritis, unspecified, without bleeding (principal); R91.1 Solitary pulmonary nodule; R10.22 Pelvic and perineal pain left side; Z79.899 Other long term (current) drug therapy
CPT/HCPCS: 36415; 74018; 74177; 80053; 83690; 83735; 85025; 96374; 99284; 99285; J1308; Q9967

== ENCOUNTER → 2025-01-23 15:50 | Outpatient (BNV) | payer OTHER, SELFPAY | PROVIDERS: PCP Internal Medicine; Visit Provider Radiology Diagnostic Ultrasound | DX: R91.1 Solitary pulmonary nodule (principal); K29.70 Gastritis, unspecified, without bleeding | CPT/HCPCS: 74018; 74177 ==